=== PATIENT | male | born 1965 | race American Indian/Alaskan Native ===

== ENCOUNTER 2019-08-30 22:46 | Emergency (ER) | payer SELFPAY ==
[2019-08-31] MEDS ORDERED: METOCLOPRAMIDE 10 MG TAB PO ONE (02:10)
[2019-08-31] MEDS ORDERED: diphenhydrAMINE 25 MG CAP PO ONE (02:10)
[2019-08-31] MEDS ORDERED: SUMAtriptan SUCCINATE 6 MG/0.5 ML INJ SUB-Q ONE (02:10)
--- NOTE | 2019-08-31 03:28 | Emergency Department Report ---
ED Headache HPI - General Chief Complaint: Headache Stated Complaint: HEADACHE Time Seen by Provider: 08/31/19 00:57 - History of Present Illness Initial Comments: Patient is a 54-year-old male who presents emergency room with complaints of a right temporal headache that began a week ago. He states that it has been intermittent. He states that it lasted for approximately 1 hour and then self resolves. He states he has been taking aspirin with some relief. He states he had nausea and one episode of vomiting during this entire week. He denies any vision changes, photophobia, speech disturbance, gait disturbance, neck st iffness, fever, numbness, weakness, any other symptoms. He denies any allergies to medications. He denies any past medical history. Allergies/Adverse Reactions: Allergies No Known Allergies Allergy (Unverified 08/30/19 23:38) ED Review of Systems ROS: Stated complaint: HEADACHE Other details as noted in HPI Comment: All other systems reviewed and negative ED Past Medical Hx - Past Medical History Previous Medical History?: Yes Hx Hypertension: Yes - Surgical History Past Surgical History?: No ED Physical Exam - General Limitations: No Limitations General appearance: alert, in no apparent distress - Head Head exam: Present: atraumatic, normocephalic - Eye Eye exam: Present: normal appearance - ENT ENT exam: Present: mucous membranes moist - Neck Neck exam: Present: full ROM. Absent: meningismus - Respiratory Respiratory exam: Present: normal lung sounds bilaterally. Absent: respiratory distress, wheezes, rales, rhonchi, stridor, chest wall tenderness, accessory muscle use, decreased breath sounds, prolonged expiratory - Cardiovascular Cardiovascular Exam: Present: regular rate, normal rhythm, normal heart sounds. Absent: systolic murmur, diastolic murmur, rubs, gallop - Neurological Exam Neurological exam: Present: alert, oriented X3, CN II-XII intact, normal gait. Absent: motor sensory deficit - Psychiatric Psychiatric exam: Present: normal affect, normal mood - Skin Skin exam: Present: warm, dry, intact ED Course Vital Signs 08/30/19 23:39 Temperature 98.3 F Pulse Rate 75 Respiratory 18 Rate Blood Pressure 158/110 [Right] O2 Sat by Pulse 97 Oximetry ED Medical Decision Making - Medical Decision Making Patient is a 54-year-old male who presents emergency room with complaints of a right temporal headache that began a week ago. He states that it has been intermittent. He states that it lasted for approximately 1 hour and then self resolves. He states he has been taking aspirin with some relief. He states he had nausea and one episode of vomiting during this entire week. He denies any vision changes, photophobia, speech disturbance, gait disturbance, neck stiffness, fever, numbness, weakness, any other symptoms. He denies any allergies to medications. He denies any past medical history. Vitals with elevated blood pressure, otherwise stable. No neurological deficits on exam. Patient given Reglan, Benadryl, Imitrex. Advised patient would give medications and observe him and then do a reassessment. When I went to reassess patient it appears he has eloped from the emergency department. Unable to reassess patient, unable to get an updated set of vitals. Patient has eloped. Critical care attestation.: If time is entered above; I have spent that time in minutes in the direct care of this critically ill patient, excluding procedure time. ED Disposition Clinical Impression: Headache Qualifiers: Headache type: unspecified Headache chronicity pattern: acute headache Intractability: not intractable Qualified Code(s): R51 - Headache Disposition: Z-07 ELOPED Is pt being admited?: No Does the pt Need Aspirin: No Condition: Undetermined Instructions: Acute Headache (ED) Referrals: PRIMARY CAREMD [Primary Care Provider] - [facility] Time of Disposition: 03:27 Print Language: TUNISIAN
[2019-08-31 05:21] VITALS: BP 158/110
== END 2019-08-31 03:25 | disposition left against medical advice (07) ==
LOC: EDBD → ED 22:46
DX: R51 Headache (principal); I10 Essential (primary) hypertension
CPT/HCPCS: 96372; 99281; J3030

== ENCOUNTER 2020-01-23 06:20 | Emergency (ER) | payer SELFPAY ==
[2020-01-23] MEDS ORDERED: KETOROLAC 10 MG TAB PO ONE (10:19)
[2020-01-23] MEDS ORDERED: oxyCODONE /ACETAMINOPHEN 5-325MG TAB PO ONE (10:19)
--- NOTE | 2020-01-23 10:22 | Emergency Department Report ---
ED General Adult HPI - General Chief complaint: Dental/Oral Stated complaint: TOOTHACHE Time Seen by Provider: 01/23/20 10:11 Source: patient Mode of arrival: Ambulatory Limitations: No Limitations - History of Present Illness Initial comments: 54-year-old -[place] male patient presents with complaints of sudden onset of left lower dental pain and facial swelling x2 days. Patient rates his current pain is 8/10 in severity and states ibuprofen and penicillin are not helping. Patient states he has been using his daughter's leftover penicillin twice daily for the past 2 days without any improvement. He denies any fever/chills/sweats, difficulty opening/closing his jaw, or dysphagia. Patient states he scheduled a dental appointment this morning. - Related Data Previous Rx's Medication Instructions Recorded Last Taken Type Acetaminophen/Codeine [Tylenol 1 tab PO Q6H PRN #12 tab 01/23/20 Unknown Rx /Codeine # 3 tab] Clindamycin [Clindamycin CAP] 300 mg PO Q6H 10 Days #40 capsule 01/23/20 Unknown Rx Allergies Allergy/AdvReac Type Severity Reaction Status Date / Time No Known Allergies Allergy Unverified 08/30/19 23:38 ED Review of Systems ROS: Stated complaint: TOOTHACHE Other details as noted in HPI Constitutional: denies: chills, diaphoresis, fever, malaise ENT: dental pain. denies: throat pain Respiratory: denies: cough, shortness of breath Gastrointestinal: denies: nausea, vomiting Skin: denies: change in color Neurological: denies: headache ED Past Medical Hx - Past Medical History Previous Medical History?: Yes Hx Hypertension: Yes - Surgical History Past Surgical History?: No - Social History Smoking Status: Never Smoker - Medications Home Medications: Home Medications Medication Instructions Recorded Confirmed Last Taken Type Acetaminophen/Codeine [Tylenol 1 tab PO Q6H PRN #12 tab 01/23/20 Unknown Rx /Codeine # 3 tab] Clindamycin [Clindamycin CAP] 300 mg PO Q6H 10 Days #40 capsule 01/23/20 U nknown Rx ED Physical Exam - General Limitations: No Limitations General appearance: alert, in no apparent distress - Head Head exam: Present: atraumatic, normocephalic - Eye Eye exam: Present: normal appearance. Absent: scleral icterus - Expanded ENT Exam Expanded Mouth exam: Present: tongue normal. Absent: drooling, trismus, muffled voice Teeth exam: Present: dental caries 1 - Fractured, Dental Tenderness (mild overlying facial swelling without erythema/cellulitic changes noted) - Neck Neck exam: Present: normal inspection, full ROM. Absent: lymphadenopathy - Respiratory Respiratory exam: Absent: respiratory distress - Cardiovascular Cardiovascular Exam: Present: regular rate - Neurological Exam Neurological exam: Present: alert, oriented X3 - Psychiatric Psychiatric exam: Present: normal affect, normal mood - Skin Skin exam: Present: warm, dry, intact, normal color. Absent: rash, cyanosis, diaphoretic, erythema, petechiae ED Course Vital Signs 01/23/20 01/23/20 06:29 10:29 Temperature 98.1 F Pulse Rate 72 Respiratory 18 Rate Blood Pressure 167/110 Blood Pressure 165/109 [Right] O2 Sat by Pulse 98 Oximetry ED Medical Decision Making - Medical Decision Making 54-year-old -[place] male patient presents with complaints of sudden ons et of left lower dental pain and facial swelling x2 days. Patient rates his current pain is 8/10 in severity and states ibuprofen and penicillin are not helping. Patient states he has been using his daughter's leftover penicillin twice daily for the past 2 days without any improvement. He denies any fever/chills/sweats, difficulty opening/closing his jaw, or dysphagia. Patient states he scheduled a dental appointment this morning. Left lower dental erythema, decay, and tenderness noted with mild overlying facial swelling. No cellulitic changes noted. No fever or tachycardia is noted. Patient is stable for discharge home and follow-up with his dentist as scheduled. Prescription for clindamycin given. Blood pressure noted to be elevated at 167/110, patient admits to history of hypertension. Patient instructed to follow-up with primary care provider for further assessment of his blood pressure and treatment. Referral provided. He denies any neuro symptoms. Strict return precautions were discussed in very detail with patient who verbalizes understanding. Critical care attestation.: If time is entered above; I have spent that time in minutes in the direct care of this critically ill patient, excluding procedure time. ED Disposition Clinical Impression: Dental abscess, Elevated blood pressure reading Disposition: DC-01 TO HOME OR SELFCARE Is pt being admited?: No Condition: Undetermined Instructions: Dental Abscess, Hypertension, Adult Additional Instructions: Please follow-up with your dental specialist within 24 to 48 hours. Prescriptions: Clindamycin [Clindamycin CAP] 300 mg PO Q6H 10 Days #40 capsule Acetaminophen/Codeine [Tylenol /Codeine # 3 tab] 1 tab PO Q6H PRN #12 tab PRN Reason: Pain , Severe (7-10) Referrals: JUNIOR BALLARD MD [Primary Care Provider] - 01/25/20 (Blood Pressure )
[2020-01-23 10:30] VITALS: BP 165/109
== END 2020-01-23 10:39 | disposition home or self-care (01) ==
LOC: ED 06:20
DX: K04.7 Periapical abscess without sinus (principal); R03.0 Elevated blood-pressure reading, without diagnosis of hypertension; I10 Essential (primary) hypertension; Z79.899 Other long term (current) drug therapy
CPT/HCPCS: 99282